=== PATIENT | female | born 1995 | race Caucasian/White ===

== ENCOUNTER 2018-10-29 12:31 | Emergency (ER) | payer MEDICAID, OTHER ==
[~2018-10-29] VITALS: Ht 157.5 cm; Wt 78.0 kg
[2018-10-29 13:07] LABS: BILIRUBIN,URINE NEGATIVE (NEGATIVE); CLARITY,URINE SLIGHTLY CLOUDY; COLOR,URINE YELLOW; GLUCOSE, URINE (UA) NEGATIVE (NEGATIVE); KETONES,URINE NEGATIVE (NEGATIVE); LEUKOCYTE ESTERASE ,URINE 2+ (NEGATIVE); NITRITE,URINE NEGATIVE (NEGATIVE); PH,URINE 5 (5-9); PROTEIN,URINE 1+ (NEGATIVE); UROBILINOGEN,URINE NORMAL (NORMAL)
[2018-10-29 13:17] LABS: BACTERIA,URINE NEGATIVE /HPF; RBC,URINE 0-2 /HPF; WBC,URINE 25-50 /HPF
[2018-10-29] MEDS ORDERED: CEPH500T PO (13:48)
--- NOTE | 2018-10-29 13:48 | ED GU-Female ---
General Chief Complaint: - Urinary Stated Complaint: POSSIBLE UTI, 10 WKS Nursing Triage Note: Pt c/o midline abdominal pain, urinary urgency and painful urination. Pt is 10 weeks . Pt has to drive to [employer] and was concerned about the drive. Nursing Sepsis Screen: No Definite Risk History of Present Illness Date Seen by Provider: Oct 29, 2018 Time Seen by Provider: 13:35 Initial Comments 23-year-old female presents for urinary tract infection symptoms, she is approximately 10 weeks gestation. 3 days ago she drove here for over 4-1/2 hours and did not stop to urinate. She has no history of recurrent UTIs. She denies any vaginal discharge or spotting. Timing/Duration: this morning Severity/Quality: mild Location: suprapubic Radiation: none Activities at Onset: none Prior Genitourinary Problems: none Associated Symptoms: denies symptoms Allergies and Home Medications Allergies Coded Allergies: No Known Drug Allergies (Unverified , 10/29/18) Home Medications Cephalexin 500 Mg Tablet, 500 MG PO QID Prescribed by: JERZY SUAZO on 10/29/18 1348 Patient Home Medication List Home Medication List Reviewed: Yes Review of Systems Review of Systems Constitutional: no symptoms reported Genitourinary: see HPI, dysuria, frequency : Yes All Other Systemes Reviewed Negative Unless Noted: Yes Past Gaeplpx-Xsjoaq-Qdybkh Hx Past Med/Social Hx: Reviewed Nursing Past Med/Soc Hx Patient Social History Alcohol Use: Denies Use Recreational Drug Use: No Smoking Status: Never a Smoker Recent Foreign Travel: No Contact w/Someone Who Travel: No Recent Infectious Disease Expo: No Recent Hopitalizations: No Seasonal Allergies Seasonal Allergies: Yes Past Medical History Surgeries: No Respiratory: No Cardiac: No Neurological: No : Yes Last Menstrual Period: Jul 26, 2018 Genitourinary: No Gastrointestinal: No Musculoskeletal: No Endocrine: No HEENT: No Cancer: No Psychosocial: No Integumentary: No Blood Disorders: No Adverse Reaction/Blood Tranf: No Physical Exam Vital Signs Vital Signs - First Documented 10/29/18 12:53 Temp 97.3 Pulse 70 Resp 16 B/P (MAP) 122/82 (95) Pulse Ox 95 O2 Delivery Room Air Capillary Refill : Less Than 3 Seconds Height, Weight, BMI Height: 5'2.00" Weight: 172lbs. oz. 78.755766bv; BMI Method:Stated General Appearance: WD/WN, no apparent distress Neck: non-tender, full range of motion, supple, normal inspection Cardiovascular: normal peripheral pulses, regular rate, rhythm, no edema, no murmur Respiratory: chest non-tender, lungs clear, normal breath sounds Gastrointestinal: normal bowel sounds, non tender, soft Back: normal inspection, no CVA tenderness Neurologic/Psychiatric: no motor/sensory deficits, alert, normal mood/affect, oriented x 3 Skin: normal color, warm/dry Progress/Results/Core Measures Suspected Sepsis Recent Fever Within 48 Hours: No Infection Criteria Present: None New/Unexplained Altered Menta: No Sepsis Screen: No Definite Risk SIRS Temperature:97.3 Pulse: 70 Respiratory Rate: 16 Blood Pressure 122 /82 Mean: 95 Results/Orders Lab Results Laboratory Tests Test 10/29/18 12:53 Range/Units Urine Color YELLOW Urine Clarity SLIGHTLY CLOUDY Urine pH 5 5-9 Urine Specific [place] 1.030 H 1.016-1.022 Urine Protein 1+ H NEGATIVE Urine Glucose (UA) NEGATIVE NEGATIVE Urine Ketones NEGATIVE NEGATIVE Urine Nitrite NEGATIVE NEGATIVE Urine Bilirubin NEGATIVE NEGATIVE Urine Urobilinogen NORMAL NORMAL MG/DL Urine Leukocyte Esterase 2+ H NEGATIVE Urine RBC (Auto) 1+ H NEGATIVE Urine RBC 0-2 /HPF Urine WBC 25-50 H /HPF Urine Squamous Epithelial Cells 10-25 H /HPF Urine Crystals NONE /LPF Urine Bacteria NEGATIVE /HPF Urine Casts NONE /LPF Urine Mucus NEGATIVE /LPF Urine Culture Indicated YES My Orders Orders - JERZY SUAZO Ua Culture If Indicated (10/29/18 12:34) Urine Culture (10/29/18 12:53) Vital Signs/I&O 10/29/18 10/29/18 12:53 13:53 Temp 97.3 97.3 Pulse 70 70 Resp 16 16 B/P (MAP) 122/82 (95) 122/82 (95) Pulse Ox 95 95 O2 Delivery Room Air Room Air Capillary Refill : Less Than 3 Seconds Blood Pressure Mean: 95 Departure Impression Primary Impression: Urinary tract infection Qualified Codes: N30.01 - Acute cystitis with hematuria Disposition: HOME, SELF-CARE Condition: Improved Departure-Patient Inst. Decision time for Depature: 13:45 Referrals: NO,LOCAL PHYSICIAN (PCP/Family) Primary Care Physician Patient Instructions: Urinary Tract Infection, Adult (DC) Add. Discharge Instructions: Increase water intake, 16 ounces every 2 hours while awake. Empty bladder at least every 2 hours while awake. Drink 1 cup of cranberry juice or eat 1 cup of fresh blueberries daily. Take antibiotics as prescribed. Follow-up with your primary care provider or [employer] are not improving or worsen. Continue to take your vitamin. You may use Tylenol 650 mg every 6 hours as needed for pain or fever. Return to emergency department for fever greater than 100 not relieved by Tylenol, increased abdominal pain, or new problems. All discharge instructions reviewed with patient and/or family. Voiced understanding. Scripts Cephalexin (Cephalexin) 500 Mg Tablet 500 MG PO QID, #20 TAB 0 Refills Prov: JERZY SUAZO 10/29/18 JERZY SUAZO Oct 29, 2018 13:48
[2018-10-29 13:53] VITALS: BP 122/82
== END 2018-10-29 13:53 | disposition home or self-care (01) ==
LOC: ER 12:34
DX: O23.41 Unspecified infection of urinary tract in pregnancy, first trimester (principal); Z3A.10 10 weeks gestation of pregnancy
CPT/HCPCS: 81000; 87088; 99282